=== PATIENT | male | born 1990 | race Caucasian/White ===

== ENCOUNTER 2019-05-24 17:34 | Emergency (ER) | payer OTHER ==
--- NOTE | 2019-05-24 19:34 | ER Document Report ---
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 He reports he did take some Mucinex. Patient reports this morning on the way to work he started feeling chest pressure hard to breathe. He reports the symptoms went away all day at work. Upon leaving work at 1700 tonight the pressure came back. He denies history of cardiac disease. He denies history of IV drug use cocaine use. Reports he drinks an energy drink every now and then but not on a regular basis. Reports he had a mountain dew today. Denies fever vomiting diarrhea. Patient denies pain at this time. Denies family history of cardiac disease. Patient is speaking in clear sentences no distress. EKG shows sinus rhythm no ST elevation no T wave inversion. She reports he also has a nonproductive cough. 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 denies: CAD Patient has suicidal ideation: No Patient has homicidal ideation: No - Medical History Medical History: Negative Surgical Hx: Negative Vertical Provider Document - CONSTITUTIONAL Agree With Documented VS: Yes Exam Limitations: No Limitations General Appearance: WD/WN, No Apparent Distress - INFECTION CONTROL TRAVEL OUTSIDE OF THE [place] IN LAST 30 DAYS: No - HEENT HEENT: Atraumatic, Normocephalic. negative: Conjuctival Injection - NECK Neck: Normal Inspection, Supple. 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 Denies trauma. Denies history of cardiac disease. Denies family history of cardiac disease. Denies history of cocaine. Denies shortness of breath. Denies drinking energy drinks. Reports he recently took Mucinex for sinus infection. EKG shows sinus rhythm no ST elevation no T wave inversion. Patient reports he has a nonproductive cough also. Will do chest x-ray. 05/24/19 20:28 Chest x-ray negative for acute pneumonia. Patient was instructed on results instructed on EKG instructed to follow-up with his BAS tomorrow morning. He verbalized understanding to all instructions. Chest X-Ray 05/24/19 19:28 IMPRESSION: No acute disease. copyright 2010 [employer]- All Rights Reserved - Vital Signs Vital signs: Temp Pulse Resp BP Pulse Ox 98.8 F 91 18 146/86 H 93 05/24/19 17:48 05/24/19 17:48 05/24/19 17:48 05/24/19 17:48 05/24/19 17:48 Discharge - Discharge Clinical Impression: Chest pressure, Nonproductive cough Condition: Stable Disposition: HOME, SELF-CARE Additional Instructions: *You have been evaluated for chest pressure, nonproductive cough *Take ibuprofen as indicated *Follow up with your BAS tomorrow *Return to ED for worsening condition, changes, needs Forms: Elevated Blood Pressure, Smoking Cessation Education
--- NOTE | 2019-05-24 20:23 | RADIOLOGY REPORT (SQ) ---
EXAM DESCRIPTION: XR CHEST 2 VIEWS COMPLETED DATE/TME: 05/24/2019 19:28 CLINICAL HISTORY: 28 years, Male, cough COMPARISON: None. NUMBER OF VIEWS: Two TECHNIQUE: Frontal and lateral radiograph of the chest were obtained. LIMITATIONS: None. FINDINGS: Cardiac and mediastinal contours are normal. Lungs are clear. No pleural effusion or pneumothorax. IMPRESSION: No acute disease. copyright 2010 [employer]- All Rights Reserved
[2019-05-24 20:35] VITALS: BP 155/89
--- NOTE | 2019-05-25 08:50 | EKG REPORT ---
SEVERITY:- NORMAL ECG - SINUS RHYTHM : Confirmed by: Selina Muniz MD 25-May-2019 08:49:44
== END 2019-05-24 20:37 | disposition home or self-care (01) ==
LOC: ER 17:34
DX: R07.89 Other chest pain (principal); R05 Cough; F17.210 Nicotine dependence, cigarettes, uncomplicated
CPT/HCPCS: 71046; 93005; 93010; 99284